=== PATIENT | male | born 1935 | race Caucasian/White ===

== ENCOUNTER 2021-03-17 19:13 | Inpatient (IN) | payer MEDICARE, OTHER ==
[~2021-03-17] VITALS: Ht 175.3 cm; Wt 82.1 kg
[2021-03-17 20:02] LABS: BASOPHILS 0.6 % (0-2); EOSINOPHILS 3.2 % (0-7); HEMATOCRIT 41.7 % (42.0-54.0); HEMOGLOBIN 13.4 g/dL (13.5-17.5); MCH 28.3 pg (26.0-34.0); MCHC 32.3 g/dL (31.0-37.0); MCV 87.6 fL (80.0-100.0); MEAN PLATELET VOLUME 8.5 fL (7.4-10.4); MONOCYTES 13.7 % (2-11); NEUTROPHILS 61.5 % (40-80); PLATELET COUNT 208 10x3/uL (130-400); RBC 4.76 10x6/uL (4.20-6.10); RDW 16.3 % (11.5-14.5)
[2021-03-17 20:12] LABS: ANION GAP 12.2 mmol/L (8-16); CALCIUM 11.4 mg/dL (8.5-10.1); CARBON DIOXIDE 30.8 mmol/L (21.0-32.0); CREATININE - SERUM 1.3 mg/dL (0.6-1.3)
[2021-03-17 20:26] LABS: ALBUMIN 3.8 g/dL (3.4-5.0); BILIRUBIN - TOTAL 1.04 mg/dL (0.2-1.3); MAGNESIUM - SERUM 2.1 mg/dL (1.8-2.4); TROPONIN-I 0.021 ng/mL (0.000-0.060)
[2021-03-17 20:30] VITALS: BP 134/84
[2021-03-17 22:30] VITALS: BP 137/65; BMI 26.8
[2021-03-18] VITALS (7 sets, daily range): BP systolic 102–132; BP diastolic 50–72; BMI 26.7
[2021-03-18 05:33] LABS: BASOPHILS 0.5 % (0-2); EOSINOPHILS 3.6 % (0-7); HEMATOCRIT 37.6 % (42.0-54.0); HEMOGLOBIN 12.2 g/dL (13.5-17.5); LYMPHOCYTES 24.8 % (15-50); MCH 28.3 pg (26.0-34.0); MCHC 32.5 g/dL (31.0-37.0); MCV 87.1 fL (80.0-100.0); MEAN PLATELET VOLUME 8.7 fL (7.4-10.4); NEUTROPHILS 57.1 % (40-80); RBC 4.32 10x6/uL (4.20-6.10); RDW 15.6 % (11.5-14.5); WBC 5.7 10x3/uL (4.8-10.8)
[2021-03-18 05:37] LABS: PLATELET COUNT 166 10x3/uL (130-400)
[2021-03-18 06:00] LABS: ALBUMIN 3.2 g/dL (3.4-5.0); BILIRUBIN - TOTAL 0.93 mg/dL (0.2-1.3); CARBON DIOXIDE 31.8 mmol/L (21.0-32.0); CREATININE - SERUM 1.5 mg/dL (0.6-1.3); MAGNESIUM - SERUM 1.9 mg/dL (1.8-2.4); PHOSPHOROUS 2.7 mg/dL (2.5-4.9); PROTEIN - SERUM 6.7 g/dL (6.4-8.2)
[2021-03-18 06:01] LABS: ANION GAP 10.3 mmol/L (8-16); POTASSIUM - SERUM 4.1 mmol/L (3.5-5.1)
--- NOTE | 2021-03-18 08:08 | NUR ---
AM MEDS GIVEN AT THIS TIME. PT SITTING UP IN BED EATING BREAKFAST, RR EVEN NON LABORED ON ROOM AIR. PT AAOX4, PLEASNT AND ANSWERS QUESTIONS APPROP. NO NEEDS VOICED. CLWR.
[2021-03-18] MEDS ORDERED: COREG6.25 MG (10:57)
[2021-03-18] MEDS ORDERED: ELIQUIS2.5 MG PO (10:59)
[2021-03-18] MEDS ORDERED: LISINOPRIL20 MG PO (10:59)
[2021-03-18] MEDS ORDERED: LASIX80 MG PO (10:59)
[2021-03-18] MEDS ORDERED: K-DUR20 MEQ PO (10:59)
--- NOTE | 2021-03-18 11:00 | NUR ---
[facility] REVIEWED WITH DAUGHTER AND PT WHO HAS LIST AT HOME AT THIS TIME. MEDICATIONS PLACED IN CHART. PT TALKING ON CELL PHONE, RR EVEN NON LABORED. NO NEEDS VOICED. CLWR.
--- NOTE | 2021-03-18 15:52 | EC ---
PATIENT:MARISA ASCENCIO DATE OF SERVICE: 03/17/21 SEX: M MEDICAL RECORD: [id number] DATE OF : [birth year] LOCATION:D.M2 D.210 AGE OF PATIENT: 85 ADMISSION DATE: 03/17/21 REFERRING PHYSICIAN: INTERPRETING PHYSICIAN: MIROSLAVA HUSSEIN MD ECHOCARDIOGRAM REPORT ECHO CHARGES 4 ECHO COMPLETE Date: 03/18/21 CLINICAL DIAGNOSIS: CHF, EDEMA, ELEVATED PRO-BNP, AFIB ECHOCARDIOGRAPHIC MEASUREMENTS (adult normal given) AC root (d.<3.7cm) 3.5 cm LV Septum d (<1.2 cm> 1.2 cm Valve Excursion 2.8 cm LV Septum (systole) 1.3 cm Left Atria (s.<4.0cm> 4.1 cm LVPW d(<1.2cm) 1.2 cm RV (d.<2.3cm) 3.8 cm LVPW (sytole) 1.6 cm LV diastole(<5.6CM) 4.5 cm MV E-F(>70mm/sec) cm LV systole 3.4 cm LVOT Diameter 1.8 cm MV exc.(>10mm) 1.1 cm Est.ejection fraction (50-75%) % DOPPLER: LVIT cm/sec A 34 cm/sec E 65 cm/sec LA cm/sec RVSP 31 mmHg LVOT 85 cm/sec AOP1/2T m/s Asc. Ao 136 cm/sec RVOT 76 cm/sec RA cm/sec PA 70 cm/sec AV Gradient Peak 7.4 mmHg AV Mean 4.8 mmHg AV Area 1.2 cm MV Gradient Peak 2.6 mmHg MV Mean 0.8 mmHg MV Area cm COMMENTS: Terminal Make Up Operator: Joni GILES Centerless Grinding Machine Adjuster: 3 Dr. Munroe TAPE# Pericardial Effusion N DATE OF SERVICE: Adequate 2D, color-flow imaging, spectral Doppler, and M-Mode. FINDINGS: Borderline LVH. LV internal dimension is normal. LV is mildly globally hypokinetic with EF lower limits of normal to mildly reduced, estimated EF 45% to 50%. Aortic valve is sclerotic. No evidence of stenosis by Doppler interrogation. Left atrium mildly dilated at 4.1 cm. Mitral valve shows no prolapse. Trace MR. Right sided is grossly normal. Mild TR. ECHOCARDIOGRAM REPORT [id number] MARISA ASCENCIO TRANSINT:[id number] Voice Confirmation ID: [id number] DOCUMENT ID: [id number] MIROSLAVA HUSSEIN MD at 1552 CC: [id number] DICTATION DATE: 03/18/211403 METER INSTALLER: 03/18/21 1439 ADM IN [facility] [address] [place] [address]
--- NOTE | 2021-03-18 19:30 | NUR ---
PT IN BED, AAO X 3, RESP EVEN AND UNLABORED, NO DISTRESS NOTED, CL IN REACH, SR UP X 2.
--- NOTE | 2021-03-19 01:41 | NUR ---
I have reviewed this patient and I concur with the Shift Assessment completed by the Licensed Practical Nurse today this shift.
[2021-03-19 03:45] VITALS: BP 87/47
[2021-03-19 06:48] LABS: BASOPHILS 0.5 % (0-2); EOSINOPHILS 3.5 % (0-7); HEMATOCRIT 36.3 % (42.0-54.0); HEMOGLOBIN 11.8 g/dL (13.5-17.5); LYMPHOCYTES 24.1 % (15-50); MCH 28.2 pg (26.0-34.0); MCHC 32.5 g/dL (31.0-37.0); MCV 86.8 fL (80.0-100.0); MEAN PLATELET VOLUME 8.8 fL (7.4-10.4); MONOCYTES 14.9 % (2-11); PLATELET COUNT 164 10x3/uL (130-400); RBC 4.19 10x6/uL (4.20-6.10); RDW 15.4 % (11.5-14.5); WBC 5.8 10x3/uL (4.8-10.8)
[2021-03-19 06:57] LABS: ANION GAP 9.5 mmol/L (8-16); BILIRUBIN - TOTAL 0.67 mg/dL (0.2-1.3); CALCIUM 10.4 mg/dL (8.5-10.1); CARBON DIOXIDE 30.9 mmol/L (21.0-32.0); CREATININE - SERUM 1.7 mg/dL (0.6-1.3); MAGNESIUM - SERUM 1.9 mg/dL (1.8-2.4); PHOSPHOROUS 2.9 mg/dL (2.5-4.9); PROTEIN - SERUM 6.4 g/dL (6.4-8.2)
--- NOTE | 2021-03-19 07:00 | NUR ---
PT LYING IN BED WITH HEAD OF BED ELEVATED AT 30 DEGREES. RESP EVEN AND UNLABORED. ALERT AND ORIENTED TO PERSON, PLACE, AND SITUATION. UNABLE TO REMEMBER WHAT YEAR IT IS. DENIES NEEDS AT THIS TIME. CLIR. BED IN LOWEST POSITION. SIDE RAILS X2. ASSESSMENT COMPLETED
[2021-03-19 07:07] LABS: POTASSIUM - SERUM 3.4 mmol/L (3.5-5.1)
[2021-03-19 08:06] VITALS: BP 93/59
--- NOTE | 2021-03-19 10:28 | NUR ---
I have reviewed this patient and I concur with the Shift Assessment completed by the Licensed Practical Nurse today this shift.
[2021-03-19 11:25] VITALS: BP 98/62
[2021-03-19 12:29] LABS: BILIRUBIN NEGATIVE (NEGATIVE); KETONE NEGATIVE (NEGATIVE); NITRITE NEGATIVE (NEGATIVE); UROBILINOGEN NORMAL mg/dL (< 2)
[2021-03-19 15:27] VITALS: Ht 175.3 cm; Wt 82.1 kg
[2021-03-19 15:32] VITALS: BP 108/53
--- NOTE | 2021-03-19 16:00 | NUR ---
OT NOTE: PT COMPLETED SUPINE TO SIT WITH CGA. PT REQUIRED MIN A FOR SHAVING. NOTED SKIN GROWTH ON LEFT CHEEK. NOTIFIED NURSING. PT COMPLETED ADAN/DOFF SHOES WITH SBA. CL IN REACH...BED ALARM SET. [phone] THANK YOU,SHERRIE FRANCIS
[2021-03-19 20:04] VITALS: BP 117/69
--- NOTE | 2021-03-19 23:41 | NUR ---
PT CONVERTED FROM JUNCTIONAL RHYTHM TO AFIB/FLUTTER. NO DISTRESS
[2021-03-20] VITALS (7 sets, daily range): BP systolic 102–159; BP diastolic 63–82
--- NOTE | 2021-03-20 06:40 | NUR ---
RECIEVED BEDSIDE REPORT. PATIENT RESTING COMFORTABLY. RESP EVEN AND UNLABORED ON ROOM AIR. IV TO LEFT AC PATENT.
[2021-03-20 07:06] LABS: BASOPHILS 0.6 % (0-2); EOSINOPHILS 5.5 % (0-7); HEMATOCRIT 37.3 % (42.0-54.0); HEMOGLOBIN 12.2 g/dL (13.5-17.5); LYMPHOCYTES 26.1 % (15-50); MCH 28.4 pg (26.0-34.0); MCHC 32.7 g/dL (31.0-37.0); MCV 86.8 fL (80.0-100.0); MEAN PLATELET VOLUME 8.4 fL (7.4-10.4); MONOCYTES 15.4 % (2-11); NEUTROPHILS 52.4 % (40-80); PLATELET COUNT 174 10x3/uL (130-400); RDW 15.7 % (11.5-14.5); WBC 5.2 10x3/uL (4.8-10.8)
[2021-03-20 07:21] LABS: ALBUMIN 3.1 g/dL (3.4-5.0); ANION GAP 7.6 mmol/L (8-16); BILIRUBIN - TOTAL 0.9 mg/dL (0.2-1.3); CALCIUM 10.3 mg/dL (8.5-10.1); CARBON DIOXIDE 33.3 mmol/L (21.0-32.0); CREATININE - SERUM 1.6 mg/dL (0.6-1.3); MAGNESIUM - SERUM 1.9 mg/dL (1.8-2.4); PHOSPHOROUS 2.9 mg/dL (2.5-4.9); POTASSIUM - SERUM 3.9 mmol/L (3.5-5.1); PROTEIN - SERUM 6.6 g/dL (6.4-8.2)
--- NOTE | 2021-03-20 07:31 | NUR ---
PATIENT RESTING, EASILY AROUSED, ALERT AND ORIENTED WITH SOME CONFUSION. ABLE TO MAKE NEEDS KNOWN. HEART SOUNDS REGULAR, AFIB PACE MAKER IN PLACE. RESP EVEN AND UNLABORED ON ROOM AIR, SAT 99 PERCENT. BILATERAL LOWER EXTREMITY EDEMA, BUMEX BID ON BOARD. SKIN CANCER TO FACE NOTED.
[2021-03-21 05:14] LABS: BASOPHILS 0.8 % (0-2); EOSINOPHILS 5.2 % (0-7); HEMATOCRIT 37.7 % (42.0-54.0); HEMOGLOBIN 12.3 g/dL (13.5-17.5); LYMPHOCYTES 24.6 % (15-50); MCH 28.2 pg (26.0-34.0); MCHC 32.7 g/dL (31.0-37.0); MCV 86.2 fL (80.0-100.0); MEAN PLATELET VOLUME 8.7 fL (7.4-10.4); MONOCYTES 14.8 % (2-11); NEUTROPHILS 54.6 % (40-80); PLATELET COUNT 183 10x3/uL (130-400); RBC 4.37 10x6/uL (4.20-6.10); RDW 15.3 % (11.5-14.5); WBC 5.9 10x3/uL (4.8-10.8)
[2021-03-21 05:32] LABS: ALBUMIN 3.2 g/dL (3.4-5.0); ANION GAP 7.5 mmol/L (8-16); BILIRUBIN - TOTAL 0.94 mg/dL (0.2-1.3); CALCIUM 10.4 mg/dL (8.5-10.1); CARBON DIOXIDE 32.8 mmol/L (21.0-32.0); CREATININE - SERUM 1.5 mg/dL (0.6-1.3); MAGNESIUM - SERUM 1.8 mg/dL (1.8-2.4); PHOSPHOROUS 2.9 mg/dL (2.5-4.9); PROTEIN - SERUM 6.8 g/dL (6.4-8.2)
[2021-03-21 05:33] LABS: POTASSIUM - SERUM 3.3 mmol/L (3.5-5.1)
[2021-03-21 06:34] VITALS: BP 103/72
[2021-03-21 07:07] VITALS: BP 108/64
[2021-03-21 12:28] VITALS: BP 110/68
[2021-03-21 15:00] VITALS: BP 137/68
[2021-03-21 19:45] VITALS: BP 104/59
--- NOTE | 2021-03-21 20:00 | NUR ---
INITIAL ROUNDS AND ASSESSMENT COMPLETED. PT RESTING IN BED. ALERT/INTERMITENT CONFUSION. CAF/PACED ON TELEMETRY. NONLABORED RESPIRATIONS ON ROOM AIAR. SALINE LOCK TO LFA. CALL LIGHT IN REACH.
[2021-03-22 00:27] VITALS: BP 104/61
[2021-03-22 04:16] VITALS: BP 112/74
--- NOTE | 2021-03-22 06:39 | NUR ---
PT HAS RESTED THE ENTIRE NIGHT WITH NO NEEDS. SOME INTERMITENT CONFUSION. CALL LIGHT IN REACH. REPORT TO ONCOMING NURSE.
[2021-03-22 06:58] LABS: BASOPHILS 0.6 % (0-2); EOSINOPHILS 4.6 % (0-7); HEMATOCRIT 36.4 % (42.0-54.0); HEMOGLOBIN 12.1 g/dL (13.5-17.5); LYMPHOCYTES 27.4 % (15-50); MCH 28.9 pg (26.0-34.0); MCHC 33.1 g/dL (31.0-37.0); MCV 87.2 fL (80.0-100.0); MEAN PLATELET VOLUME 8.9 fL (7.4-10.4); MONOCYTES 14.4 % (2-11); PLATELET COUNT 172 10x3/uL (130-400); RBC 4.18 10x6/uL (4.20-6.10); RDW 15.3 % (11.5-14.5); WBC 5.7 10x3/uL (4.8-10.8)
[2021-03-22 07:39] LABS: ALBUMIN 2.9 g/dL (3.4-5.0); ANION GAP 10.7 mmol/L (8-16); BILIRUBIN - TOTAL 0.78 mg/dL (0.2-1.3); CALCIUM 10.2 mg/dL (8.5-10.1); CARBON DIOXIDE 30.8 mmol/L (21.0-32.0); CREATININE - SERUM 1.5 mg/dL (0.6-1.3); MAGNESIUM - SERUM 1.9 mg/dL (1.8-2.4); POTASSIUM - SERUM 3.5 mmol/L (3.5-5.1); PROTEIN - SERUM 6.3 g/dL (6.4-8.2)
[2021-03-22 08:02] VITALS: BP 110/61
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
[2021-03-22] MEDS ORDERED: BUMETANIDE1 MG PO (10:03)
--- NOTE | 2021-03-22 10:32 | NUR ---
I have reviewed this patient and I concur with the Shift Assessment completed by the Licensed Practical Nurse today this shift.
--- NOTE | 2021-03-22 11:01 | NUR ---
PATIENT DISCHARGED, TELEMETRY REMOVED, IV DC, NO FURTHER NEEDS AT THIS TIME
== END 2021-03-22 11:11 | disposition home or self-care (01) | DRG 299 ==
LOC: D.ER 19:13 → D.M2 21:00
PROVIDERS: Family Medicine; ADMIT Emergency Medicine; ATTEND Emergency Medicine
DX: I87.2 Venous insufficiency (chronic) (peripheral) (principal); I50.23 Acute on chronic systolic (congestive) heart failure; I13.0 Hypertensive heart and chronic kidney disease with heart failure and stage 1 through stage 4 chronic kidney disease, or unspecified chronic kidney disease; I48.20 Chronic atrial fibrillation, unspecified; N18.9 Chronic kidney disease, unspecified; R73.03 Prediabetes; E78.5 Hyperlipidemia, unspecified; E03.9 Hypothyroidism, unspecified; Z95.0 Presence of cardiac pacemaker